=== PATIENT | male | born 1940 | race Caucasian/White ===

== ENCOUNTER 2022-10-15 07:44 | Outpatient (AMB) | payer MEDICARE, SELFPAY ==
--- NOTE | 2022-10-15 08:03 | A.OFFVIS_ITS ---
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 Dementia-lvm Intake Note: Pt presents in office for dementia Ambulatory Technologist Required: No Allergies No Known Allergies Allergy (Verified 10/15/22 08:14) Medication List - Last Reconciled 10/15/22 by Mary Gonzalez MD albuterol sulfate 90 mcg/actuation 2 puffs inhalation QID PRN atorvastatin 20 mg PO DAILY donepezil 10 mg PO DAILY fluticasone propionate 50 mcg/actuation 1 spray intranasal BID furosemide 20 mg PO DAILY lisinopril 5 mg PO DAILY rivaroxaban (Xarelto) 20 mg PO QPM umeclidinium-vilanterol 62.5-25 mcg/actuation (Anoro Ellipta) 1 ea inhalation DAILY HPI HPI Comments History of Present Illness Details 82y/o male comes for evaluation of cognitive disorder. He is accompanied by his who noticed short term memory issues for about 1 year. He constantly repeats himself, confused with the dates, misplaces things around the house ( he had this issues all his life but worse now).He has short term memory issues, has trouble with appointments. He uses a pill box which helps him to remember. He is more irritable now. He sleeps good. 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 He does not exercise.He does chores around the house. He is not social. He has hearing impairment and uses hearing aids regularly. [facility] Medical History Atrial fibrillation B12 deficiency BPH (benign prostatic hyperplasia) COPD (chronic obstructive pulmonary disease) Dementia Hearing loss HTN (hypertension) Hyperlipidemia Lung calcification Obesity JESSIE and COPD overlap syndrome Surgical History H/O colectomy History of colonoscopy History of lobectomy of lung History of total knee arthroplasty Hx of umbilical hernia repair Family History Father Cancer Mother Cancer Social History Alcohol intake: never Patient Tobacco Use Status: Former Tobacco user Years Smoked: quit 01/2015 Review of Systems Const Reports weight gain Eyes Reports blurry vision ENT Reports hearing loss Card Reports rapid heart rate Resp Reports cough Musc Reports arthralgias Neuro Reports behavioral changes, Reports confusion and Reports memory loss Psych Reports behavioral changes, Reports confusion and Reports memory loss Physical Exam Vital Signs: Last Vital Signs Pulse 48 L 10/15/22 08:13 Pulse Ox 98 10/15/22 08:13 Oxygen Delivery Method Room Air 10/15/22 08:13 Const General: cooperative, comfortable and confusion Nutritional Appearance: obese Orientation/consciousness: confusion Eyes Pupils: Equal, round and reactive pupils present Neuro General: tone normal, moves all extremities, no focal motor deficits and confusion Cranial nerves: Yes Facial sensation intact/muscles of mastication intact, Yes Equal, round and reactive pupils present, Yes Bilaterally intact EOM present, Yes Nystagmus not present, Yes Normal facial strength present, Yes Midline tongue present and Yes Symmetric palate elevation present Cognition (Neuro): abnormal cognition Gait exam (Neuro): Antalgic gait present Motor exam (neuro): 5/5 motor strength present throughout Deep tendon reflexes (DTR's): Right triceps reflex intensity grade: 1+, Left triceps reflex intensity grade: 1+, Rt Biceps (C5, C6): 1+, Left biceps reflex intensity grade: 1+, Right brachioradialis reflex intensity grade: 1+, Left brachioradialis reflex intensity grade: 1+, Right patellar reflex intensity grade: 1+ and Left patellar reflex intensity grade: 1+ Coordination: [id number] test normal Orientation Where are we (state) (county) (town or city) (hospital) (floor)?: state, hospital/clinic and floor Registration Name of 3 unrelated objects clearly and slowly, then ask patient to repeat all 3 of them. (1st repeat determines score. Make sure they can repeat all three): object 1, object 2 and object 3 Attention & Calculation (CHOOSE ONE) Spell WORLD backwards (DLROW): 2 letters Language Show patient a wristwatch & ask what it is. Repeat for pencil.: watch and pencil Ask the patient to repeat the phrase 'No ifs, ands, or buts' after you.: correct Ask the patient to 'take a piece of paper with their right hand' 'fold paper in half' 'place paper on floor': take paper in right hand Print the sentence 'CLOSE YOUR EYES' on a piece. If patient actually closes eyes then score.: followed written direction Give patient a blank piece of paper & ask to write a sentence. Score if it contains a noun & verb.: sentence contains subject and verb Ask patient to copy figure of intersecting pentagons exactly. 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
[2022-10-15 08:13] VITALS: PULSE 48; O2SAT 98
== END 2022-10-15 08:44 | disposition home or self-care (01) ==
PROVIDERS: PCP Family Medicine; Visit Provider Psychiatry & Neurology Neurology
DX: F03.90 Unspecified dementia, unspecified severity, without behavioral disturbance, psychotic disturbance, mood disturbance, and anxiety (principal)
CPT/HCPCS: 99204

== ENCOUNTER → 2022-10-15 07:44 | Outpatient (BNVA) | payer MEDICARE, SELFPAY | PROVIDERS: PCP Family Medicine; Visit Provider Psychiatry & Neurology Neurology | DX: F03.90 Unspecified dementia, unspecified severity, without behavioral disturbance, psychotic disturbance, mood disturbance, and anxiety (principal); Z79.899 Other long term (current) drug therapy | CPT/HCPCS: 99202 ==

== ENCOUNTER 2023-03-24 07:23 | Outpatient (AMB) | payer MEDICARE, SELFPAY ==
--- NOTE | 2023-03-24 07:37 | MHC.OFFVIS ---
Intake Vital Signs 03/24/23 07:38 Height 5 ft 11 in Weight 210 lb 2 oz BMI 29.3 BP 122/70 Blood Pressure Location Rt brachial Position Sitting Respiration 17 Pulse 79 Pulse Source Pulse Oximeter Pulse Oximetry (%) 94 Oxygen Delivery Method Room Air Intake Visit Reasons: 4m f/u Dementia - Confirmed Intake Note: Pt presents for a 4 month follow up for dementia. Informatics Pharmacist Required: No Allergies No Known Allergies Allergy (Verified 03/24/23 07:37) Medication List - Last Reconciled 03/24/23 by Mary Gonzalez MD albuterol sulfate 90 mcg/actuation 2 puffs inhalation QID PRN atorvastatin 20 mg PO DAILY donepezil 10 mg PO DAILY fluticasone propionate 50 mcg/actuation 1 spray intranasal BID furosemide 20 mg PO DAILY lisinopril 5 mg PO DAILY memantine 28 mg PO DAILY rivaroxaban (Xarelto) 20 mg PO QPM sertraline 50 mg PO DAILY umeclidinium-vilanterol 62.5-25 mcg/actuation (Anoro Ellipta) 1 ea inhalation DAILY HPI HPI Comments History of Present Illness Details 82y/o male comes for follow up of dementia. He is currently on namenda XR 21mg donepezil 10mg and sertraline 25 mg His cognition is stable He is still irritable He is accompanied by his who noticed short term memory issues for about 1 year. He constantly repeats himself, confused with the dates, misplaces things around the house ( he had this issues all his life but worse now).He has short term memory issues, has trouble with appointments. He uses a pill box which helps him to remember. He sleeps good. 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 He does not exercise.He does chores around the house. He is not social. He has hearing impairment and uses hearing aids regularly. He does not remember that his dog few months ago . [facility] Medical History B12 deficiency JESSIE and COPD overlap syndrome Atrial fibrillation Obesity Hyperlipidemia Lung calcification Hearing loss COPD (chronic obstructive pulmonary disease) BPH (benign prostatic hyperplasia) HTN (hypertension) Dementia Surgical History History of total knee arthroplasty H/O colectomy History of lobectomy of lung Hx of umbilical hernia repair History of colonoscopy Family History Father Cancer Mother Cancer Social History Alcohol intake: never Patient Tobacco Use Status: Former Tobacco user Years Smoked: quit 01/2015 Review of Systems Neuro Reports confusion Psych Reports confusion Physical Exam Vital Signs: Last Vital Signs Pulse 79 03/24/23 07:38 Resp 17 03/24/23 07:38 BP 122/70 03/24/23 07:38 Pulse Ox 94 03/24/23 07:38 Oxygen Delivery Method Room Air 03/24/23 07:38 BMI result Body Mass Index 29.3 Const General: cooperative, comfortable and confusion Nutritional Appearance: obese Orientation/consciousness: confusion Eyes Pupils: Equal, round and reactive pupils present Neuro General: tone normal, moves all extremities, no focal motor deficits and confusion Cranial nerves: Yes Facial sensation intact/muscles of mastication intact, Yes Equal, round and reactive pupils present, Yes Bilaterally intact EOM present, Yes Nystagmus not present, Yes Normal facial strength present, Yes Midline tongue present and Yes Symmetric palate elevation present Cognition (Neuro): abnormal cognition Gait exam (Neuro): Antalgic gait present Motor exam (neuro): 5/5 motor strength present throughout Coordination: [id number] test normal Assessment & Plan Assessment & Plan (1) Dementia: Comment: 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 Code(s): F03.90 - Unspecified dementia, unspecified severity, without behavioral disturbance, psychotic disturbance, mood disturbance, and anxiety Plan MRI brain showed gen atrophy and white matter changes as per PCPs notes Lab reports from PCP for review Continue donepezil 10mg qd I will trial him on sertraline 25 mg qd for irritability I will trial him on Namenda XR 7 mg qd Increase social interaction Medications: Changed From memantine 21 mg PO DAILY 30 ea 0RF To memantine 28 mg PO DAILY 30 ea 6RF From sertraline 25 mg PO DAILY 30 tabs 6RF To sertraline 50 mg PO DAILY 30 tabs 6RF Coding Level of Care Code Est Pt Level 4 (80434) Diagnoses Dementia F03.90
[2023-03-24 07:38] VITALS: BP 122/70; PULSE 79; RESP 17; O2SAT 94; BMI 29.3
== END 2023-03-24 07:56 | disposition home or self-care (01) ==
PROVIDERS: PCP Family Medicine; Visit Provider Psychiatry & Neurology Neurology
DX: F03.90 Unspecified dementia, unspecified severity, without behavioral disturbance, psychotic disturbance, mood disturbance, and anxiety (principal)
CPT/HCPCS: 99214

== ENCOUNTER → 2023-03-24 07:23 | Outpatient (BNVA) | payer MEDICARE, SELFPAY | PROVIDERS: PCP Family Medicine; Visit Provider Psychiatry & Neurology Neurology | DX: F03.90 Unspecified dementia, unspecified severity, without behavioral disturbance, psychotic disturbance, mood disturbance, and anxiety (principal); Z79.899 Other long term (current) drug therapy | CPT/HCPCS: 99212 ==

== ENCOUNTER 2023-09-23 07:21 | Outpatient (AMB) | payer OTHER, SELFPAY ==
--- NOTE | 2023-09-23 07:22 | MHC.OFFVIS ---
Vital Signs 09/23/23 07:23 Height 5 ft 11 in Weight 212 lb 2 oz BMI 29.6 BP 114/68 Blood Pressure Location Rt brachial Position Sitting Respiration 16 Pulse 84 Pulse Source Palpation Intake Visit Reasons: Follow up - Confirmed Intake Note: Pt presents to the office for a 6 month follow up for Dementia. Digital Media Representative Required: No Allergies No Known Allergies Allergy (Verified 09/23/23 07:22) Medication List - Last Reconciled 09/23/23 by Mary Gonzalez MD albuterol sulfate 90 mcg/actuation 2 puffs inhalation QID PRN apixaban (Eliquis DVT-PE Treat 30D Start) 5 mg PO BID atorvastatin 20 mg PO DAILY donepezil 10 mg PO DAILY fluticasone propionate 50 mcg/actuation 1 spray intranasal BID furosemide 20 mg PO DAILY memantine 28 mg PO DAILY sertraline 50 mg PO DAILY umeclidinium-vilanterol 62.5-25 mcg/actuation (Anoro Ellipta) 1 ea inhalation DAILY HPI Comments Details: 83y/o male comes for follow up of dementia. He is currently on namenda XR 21mg donepezil 10mg and sertraline 25 mg His cognition is stable He is still irritable. He sits at the table cutting bread for beds, plays in his computer, watches TV and sleeps. He has no outside interaction.He declines going to senior He also has some automatisms He is independent on his ADLs He is accompanied by his who noticed short term memory issues for about 1 year. He constantly repeats himself, confused with the dates, misplaces things around the house ( he had this issues all his life but worse now).He has short term memory issues, has trouble with appointments. He uses a pill box which helps him to remember. He sleeps good. 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 He does not exercise.He does chores around the house. He is not social. He has hearing impairment and uses hearing aids regularly. He does not remember that his dog few months ago . [facility] Medical History B12 deficiency JESSIE and COPD overlap syndrome Atrial fibrillation Obesity Hyperlipidemia Lung calcification Hearing loss COPD (chronic obstructive pulmonary disease) BPH (benign prostatic hyperplasia) HTN (hypertension) Dementia Surgical History History of total knee arthroplasty H/O colectomy History of lobectomy of lung Hx of umbilical hernia repair History of colonoscopy Family History Father Cancer Mother Cancer Social History Alcohol intake: never Patient Tobacco Use Status: Former Tobacco user Years Smoked: quit 01/2015 Review of Systems Neuro Reports confusion Psych Reports confusion Physical Exam Vital Signs: Last Vital Signs Pulse 84 09/23/23 07:23 Resp 16 09/23/23 07:23 BP 114/68 09/23/23 07:23 BMI result Body Mass Index 29.6 Const General: cooperative, comfortable and confusion Nutritional Appearance: obese Orientation/consciousness: confusion Eyes Pupils: Equal, round and reactive pupils present Neuro General: tone normal, moves all extremities, no focal motor deficits and confusion Cranial nerves: Yes Facial sensation intact/muscles of mastication intact, Yes Equal, round and reactive pupils present, Yes Bilaterally intact EOM present, Yes Nystagmus not present, Yes Normal facial strength present, Yes Midline tongue present and Yes Symmetric palate elevation present Cognition (Neuro): abnormal cognition Gait exam (Neuro): Antalgic gait present Motor exam (neuro): 5/5 motor strength present throughout Coordination: [id number] test normal Assessment & Plan Assessment & Plan (1) Dementia: Comment: 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 Code(s): F03.90 - Unspecified dementia, unspecified severity, without behavioral disturbance, psychotic disturbance, mood disturbance, and anxiety Category: Medical Plan MRI brain showed gen atrophy and white matter changes as per PCPs notes Continue donepezil 10mg qd Increase sertraline 75 mg qd for irritability Namenda XR 28 mg qd Increase social interaction Medications: Changed From sertraline 50 mg PO DAILY 30 tabs 6RF To sertraline 75 mg (1.5 x 50 mg) PO DAILY 45 tabs 6RF Refilled memantine 28 mg PO DAILY 30 ea 6RF Coding Level of Care Code Est Pt Level 4 (36885) Diagnoses Dementia F03.90
[2023-09-23 07:23] VITALS: BP 114/68; PULSE 84; RESP 16; BMI 29.6
== END 2023-09-23 07:59 | disposition home or self-care (01) ==
PROVIDERS: PCP Family Medicine; Visit Provider Psychiatry & Neurology Neurology
DX: F03.90 Unspecified dementia, unspecified severity, without behavioral disturbance, psychotic disturbance, mood disturbance, and anxiety (principal)
CPT/HCPCS: 99214

== ENCOUNTER → 2023-09-23 07:21 | Outpatient (BNVA) | payer OTHER, SELFPAY | PROVIDERS: PCP Family Medicine; Visit Provider Psychiatry & Neurology Neurology ==